=== PATIENT | male | born 1990 | race Caucasian/White ===

== ENCOUNTER 2016-09-02 17:26 | Emergency (ER) | payer MEDICAID, OTHER ==
[2016-09-02 17:41] VITALS: BP 110/66
[2016-09-02] MEDS ORDERED: SILVER SULFADIAZINE 50 APPL JAR TP ONE ×2 (17:56→17:58)
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
== END 2016-09-02 18:05 | disposition home or self-care (01) ==
LOC: ER 17:26
DX: T24.111A Burn of first degree of right thigh, initial encounter (principal); X19.XXXA Contact with other heat and hot substances, initial encounter